=== PATIENT | female | born 1990 | race Caucasian/White ===

== ENCOUNTER → 2019-06-01 16:10 | Outpatient (CLI) | payer OTHER, SELFPAY ==
--- NOTE | 2019-06-01 16:15 | DI.US.S_ITS ---
PROCEDURE: US OB <= 14 WEEKS FETUS INDICATIONS: INITIAL US: DATING AND VIABILITY OUTSIDE/PRIOR DATING DATA: Last menstrual period (LMP): 04/03/19. LMP-based estimated date of delivery (MARTÍN): 01/08/20. First dating scan (date and location): 06/01/19. Estimated date of delivery (MARTÍN) from first dating scan: 01/09/20. TECHNIQUE: Real-time scanning was performed of the fetus and maternal pelvic organs, with image documentation. Endovaginal scanning was also performed to better visualize the fetus and maternal ovaries. COMPARISON: None. FINDINGS: Embryo: Licking-rump length measured 1.8 cm corresponding to 8 weeks 2 days. Embryonic heart rate measured 160 beats per minute. Measurement variability in dating: +/- 4 weeks by LMP, +/- 7 days by mean sac diameter (use before 6 weeks gestation if crown-rump length not able to be measured), +/- 5 days by crown-rump length (up to 8 weeks 6 days gestation), +/- 7 days by crown-rump length (up to 13 weeks 6 days gestation). Maternal organs: Ovaries within normal limits. Limited images through the kidneys demonstrate no hydronephrosis. IMPRESSION: 8 week 2 day single living IUP. Dictated by: Tomas Randhawa RRA Interpreted: Lesley Bach MD on 06/02/2019 at 8:46 Approved by: Leslye Bach MD, PhD on 06/02/2019 at 10:34
== END ==
PROVIDERS: PCP Obstetrics & Gynecology; Visit Provider Obstetrics & Gynecology
DX: Z34.01 Encounter for supervision of normal first pregnancy, first trimester (principal); Z3A.08 8 weeks gestation of pregnancy
CPT/HCPCS: 76801

== ENCOUNTER → 2019-06-21 13:33 | Outpatient (CLI) | payer OTHER, SELFPAY ==
[2019-06-21 14:02] LABS: Appearance Urine UA CLOUDY; Bilirubin Urine UA NEGATIVE (NEGATIVE); Color Urine UA YELLOW; Glucose Urine UA NEGATIVE (Negative); Ketones Urine UA NEGATIVE (NEGATIVE); Leukocyte Esterase Urine UA NEGATIVE (NEGATIVE); Nitrite Urine UA NEGATIVE (Negative); Occult Blood Urine UA NEGATIVE (Negative); Protein Urine UA NEGATIVE (Negative); Urobilinogen Urine UA 0.2 E.U./dL (0.2)
[2019-06-21 14:18] LABS: Add Manual Diff / Slide Review NO; Basophils Absolute Auto 0 /uL (0-100); Basophils Percent Auto 0.3 % (0-2); Eosinophils Absolute Auto 0 /uL (0-450); Eosinophils Percent Auto 0.3 % (2-4); Hematocrit 38.5 % (36-46); Hemoglobin 13.2 g/dL (12.0-16.0); Lymphocytes Absolute Auto 2100 /uL (1100-4500); Lymphocytes Percent Auto 20.6 % (25-40); Mean Corpuscular HGB Conc 34.4 % (30-36); Mean Corpuscular Hemoglobin 30.2 PG (26-34); Mean Corpuscular Volume 87.8 fL (80-100); Monocytes Absolute Auto 700 /uL (0-900); Monocytes Percent Auto 6.5 % (3-14); Neutrophils Absolute Auto 7400 /uL (1500-7000); Neutrophils Percent Auto 72.3 % (50-75); Platelet Count 263 X10^3/uL (150-400); Red Blood Cell Count 4.38 X10^6/uL (4.0-5.2); Red Cell Distribution Width 12.8 % (11.6-14.8); White Blood Cell Count 10.2 X10^3/uL (4.5-11.0)
[2019-06-21 15:32] LABS: Hepatitis B Surface Antigen NEGATIVE s/c (NEGATIVE); Rubella Antibody IgG 24.7 IU/mL (>15)
[2019-06-21 15:46] LABS: HIV 1 & 2 Ab/Ag 4th Gen Combo NEGATIVE (NEGATIVE); Hep C Virus Ab w/Reflex Quant NEGATIVE s/c (NEGATIVE)
== END ==
PROVIDERS: Visit Provider Obstetrics & Gynecology
DX: Z34.90 Encounter for supervision of normal pregnancy, unspecified, unspecified trimester (principal)
CPT/HCPCS: 36415; 80055; 81003; 86787; 86803; 86850; 86900; 86901; 87086; 87389

== ENCOUNTER → 2019-08-03 16:03 | Outpatient (CLI) | payer OTHER, SELFPAY ==
[2019-08-03 20:02] LABS: Urine N gonorrhoeae NOT DETECTED
[2019-08-03 20:55] LABS: Urine Chlamydia NOT DETECTED
[2019-08-09 09:57] LABS: Calc Gestational Age 17.3; Cigarette Smoker NO; Donated Egg N; Donor Egg Age NOT GIVEN; Inhibin A, Dimeric 94 pg/mL; Maternal Ethnicity White; Maternal Weight 248 lbs; Number of Fetuses 1; Previous Pregnancy Down Syndro N; hCG, MoM 1.07; hCG, Serum 21.8 IU/mL
== END ==
PROVIDERS: Visit Provider Obstetrics & Gynecology
DX: Z34.82 Encounter for supervision of other normal pregnancy, second trimester (principal)
CPT/HCPCS: 36415; 82105; 82677; 84702; 86336; 87491; 87591

== ENCOUNTER → 2019-08-20 08:41 | Outpatient (CLI) | payer OTHER, SELFPAY ==
--- NOTE | 2019-08-20 08:45 | DI.US.S_ITS ---
PROCEDURE: US OB >= 14 WEEKS FETUS INDICATIONS: ANATOMY OUTSIDE/PRIOR DATING DATA: Last menstrual period (LMP): 04/03/19. LMP-based estimated date of delivery (MARTÍN): 01/08/20. First dating scan (date and location): 06/01/19. Estimated date of delivery (MARTÍN) from first dating scan: 01/09/20. TECHNIQUE: Real-time scanning was performed of the fetus, with image documentation and biometric measurements. Endovaginal scanning: No COMPARISON: [facility], , OB <= 14 WEEKS FETUS, 06/23/2019, 17:07. FINDINGS: General: A single living intrauterine gestation is present. Presentation: Breech. Placenta: Placental position is posterior, without previa. Amniotic fluid index: 12.1 cm, normal range is 5-24 cm. heart rate: 143 beats per minute. Maternal cervical canal: 3.8 cm long. Normal lower limit is 2.5 cm. biometrics: Biparietal diameter: 19 weeks 4 days Head circumference: 19 weeks 4 days Abdominal circumference: 19 weeks 4 days Femur length: 19 weeks 5 days Estimated gestational age from initial scan: 19 weeks 5 days Composite gestational age from present scan: 19 weeks 4 days Estimated weight and percentile: 305 g; 42nd percentile Measurement variability for biometric dating: +/- 7 days from 14 weeks to 15 weeks 6 days gestation, +/- 10 days from 16 weeks to 21 weeks 6 days gestation, +/- 2 weeks from 22 weeks to 27 weeks 6 days gestation, +/- 3 weeks for 28 weeks gestation or later. weight reference: 4500 g or EFW >90/95% is considered macrosomia or large for gestational age. EFW <10% is small for gestational age. EFW 5% or less is considered intra-uterine growth restriction. Anatomic survey: Neuro: Ventricles are non-dilated at less than 10 mm. Cisterna magna is normal at 3-11 mm. Cerebellum is normal in size and morphology. Nuchal skin fold: Normal at less than 6 mm between 14-21 weeks gestational age. Face: Nose and lips, facial profile are normal. Spine: Sacral spine not well visualized. Heart: 4-chambered heart is present, with normal ventricular outflow tracts. Diaphragm: Diaphragm is intact. Stomach: Left-sided stomach is present. Kidneys: No hydronephrosis. Normal is less than 5 mm in 2nd trimester, less than 7 mm in 3rd trimester. Cord: 3-vessel cord has orthotopic insertion. Bladder: Normal in size. Extremities: All 4 extremities identified. IMPRESSION: 1. Single living IUP redemonstrated and interval growth is normal. 2. Sacral spine not well-seen; otherwise normal anatomy. Followup recommended. Dictated by: Tomas JEWELL Interpreted: April Pappas MD on 08/20/2019 at 10:42 Approved by: April Pappas M.D. on 08/20/2019 at 13:53
== END ==
PROVIDERS: PCP Obstetrics & Gynecology; Visit Provider Obstetrics & Gynecology
DX: Z34.02 Encounter for supervision of normal first pregnancy, second trimester (principal); Z3A.19 19 weeks gestation of pregnancy
CPT/HCPCS: 76811

== ENCOUNTER → 2019-10-12 13:45 | Outpatient (CLI) | payer OTHER, SELFPAY ==
[2019-10-12 15:18] LABS: Hematocrit 34.5 % (36-46); Hemoglobin 12.1 g/dL (12.0-16.0)
[2019-10-12 15:53] LABS: GTT (PREG) 1 Hour PP 50gm Dose 98 mg/dL (76-139)
== END ==
PROVIDERS: Visit Provider Obstetrics & Gynecology
DX: Z34.02 Encounter for supervision of normal first pregnancy, second trimester (principal); Z3A.23 23 weeks gestation of pregnancy
CPT/HCPCS: 36415; 82950; 85014; 85018

== ENCOUNTER → 2019-12-15 16:12 | Outpatient (CLI) | payer OTHER, SELFPAY ==
[2019-12-16 14:31] LABS: Strep Grp B PCR NEG for Grp B Strep
== END ==
PROVIDERS: Visit Provider Obstetrics & Gynecology
DX: Z34.83 Encounter for supervision of other normal pregnancy, third trimester (principal)
CPT/HCPCS: 87653

== ENCOUNTER 2020-01-17 06:00 | Inpatient (IN) | payer OTHER, SELFPAY ==
--- NOTE | 2020-01-17 08:52 | PM.OBHP.1 ---
OB HPI Date/Time Date of admission: 01/17/20 Date Patient Seen: 01/17/20 Time Patient Seen: 08:52 History of Present Condition Chief complaint: Observation : 2 Para: 0 Estimated Date of Delivery: 01/09/20 Estimated Gestational Age (weeks): 41 Narrative: Abimbola Maciel is a 29 year old 010 at 41 weeks 1 day presenting in early labor. The patient reports that she has scattered contractions on and off all weekend, that these worsened again in the early hours, leading her to present. The patient denies loss of fluid or vaginal bleeding, reports good movement, denies any other complaints obstetrical or otherwise. The patient's has been otherwise obstetrically uncomplicated, and she has a history of an early SAB, expectantly managed. 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 Indications Other reason(s) for admission: Labor History of Present care: good care, initiated at week # (11), number of visits (15) and pounds weight gain (19) Dating criteria: LMP confirmed by 1st trimester US Obstetrical complications: none Medical complications: none Preadmission Labs Blood type: O (+) positive -: Antibody screen: negative, GBS status: negative, HBsAG: negative, HIV: negative and RPR/VDLR: negative -: Chlamydia screen: not detected and Gonorrhea screen: not detected -: Rubella: immune and Varicella: not immune Quad screen: Normal 1 hr GTT: 98 Prior (ies) History: 01/12: early SAB, expt management Evaluation Evaluation Baseline heart rate: 125 Variability: Average (6-10) monitor accelerations: Present monitor decelerations: Absent Uterine Contraction Intensity: Mild Category of Tracing: I Cervical dilation (cm): 4 Cervical effacement (%): 80 station: -2 Laboratory results: pending [facility] Social History Smoking Status: Never smoker Meds Home Medications and Allergies Home Medications Medication Instructions Recorded Confirmed Type Double Electric breast Pump and #1 each 12/08/19 01/17/20 Rx Supplies ferrous sulfate 1 tab PO 01/06/20 01/10/20 History prenat.vits,gregoria,[id number] 1 tab PO DAILY 01/06/20 01/17/20 History Allergies Allergy/AdvReac Type Severity Reaction Status Date / Time No Known Drug Allergies Allergy Verified 01/10/20 11:45 Review of Systems Constitutional Constitutional: Reports system reviewed and no additional complaints, except as documented Cardiovascular Cardiovascular: Reports system reviewed; no additional complaints, except as documented Respiratory Respiratory: Reports system reviewed and no additional complaints, except as documented Gastrointestinal Gastrointestinal: Reports system reviewed and no additional complaints, except as documented Genitourinary Genitourinary: Reports system reviewed and no additional complaints, except as documented Neurologic Neurologic: Reports system reviewed and no additional complaints, except as documented Endocrine Endocrine: Reports system reviewed and no additional complaints, except as documented Exam Vital Signs (past 8 hours): 119/65, HR 65, T 36.3C Const General: cooperative, healthy appearing, comfortable and well developed Resp Effort & Inspection: normal respiratory effort Auscultation: clear to auscultation bilaterally Cardio Rate: regular rate Rhythm: regular rhythm GI Palpation: soft and No tender External Female Exam: external appearance normal Presentation: vertex Estimated Weight (lbs): 8 Objective Labs Result Diagrams: 01/17/20 11:15 Assessment and Plan Assessment and Plan Assessment and Plan narrative: This patient presents in early labor at 41+1, having mdae cervical change to 4cm and with reassuring testing. The patient will be admitted per the usual protocol, encouraged to ambulate while labs and IV pending. Plan for pitocin augmentation if patient does not enter active labor this AM. - CBC, T&S - cEFM, toco
[2020-01-17] MEDS: LACTATED RINGERS 1,000 ML 100 ML IV (11:15)
[2020-01-17 11:35] LABS: Add Manual Diff / Slide Review NO; Basophils Absolute Auto 100 /uL (0-100); Basophils Percent Auto 0.4 % (0-2); Eosinophils Absolute Auto 0 /uL (0-450); Eosinophils Percent Auto 0.1 % (2-4); Hematocrit 37.3 % (36-46); Hemoglobin 12.6 g/dL (12.0-16.0); Lymphocytes Absolute Auto 1800 /uL (1100-4500); Lymphocytes Percent Auto 12.4 % (25-40); Mean Corpuscular HGB Conc 33.9 % (30-36); Mean Corpuscular Hemoglobin 30.6 PG (26-34); Mean Corpuscular Volume 90.2 fL (80-100); Monocytes Absolute Auto 700 /uL (0-900); Neutrophils Absolute Auto 12200 /uL (1500-7000); Neutrophils Percent Auto 82.1 % (50-75); Platelet Count 255 X10^3/uL (150-400); Red Blood Cell Count 4.14 X10^6/uL (4.0-5.2); Red Cell Distribution Width 13.3 % (11.6-14.8); White Blood Cell Count 14.8 X10^3/uL (4.5-11.0)
--- NOTE | 2020-01-17 12:45 | PM.OBPNLAB ---
Date/Time Date Patient Seen: 01/17/20 Time Patient Seen: 12:45 Pain Control Pain control: tolerating well Pelvic Exam Dilation (cm): 5 Effacement (%): 100 station: -2 Contractions Contraction intensity: Mild Status status: Category l Heart Rate Baseline: 125 Monitor Accelerations: Present Monitor Decelerations: Absent Monitor Variability: Moderate Assessment and Plan Assessment: other Plan: begin patient augmentation Comments: Patient making slow change, for pitocin augmentation. Encouraged to ambulate, for epidural when desired.
[2020-01-17] MEDS: OXYTOCIN PREMIX 30 UNIT/500 ML PLAST..BAG IV (12:48)
[2020-01-17 13:25] VITALS: BP 119/65
[2020-01-17] MEDS: ONDANSETRON 4 MG/2 ML INJ IV (15:24)
--- NOTE | 2020-01-17 15:43 | PM.OBPNLAB ---
Date/Time Date Patient Seen: 01/17/20 Time Patient Seen: 15:43 Pain Control Pain control: epidural Pelvic Exam Dilation (cm): 6 Effacement (%): 100 station: -1 Amniotic membrane status: Ruptured (light mec) Contractions Pitocin rate (mU/min): 4 Contraction frequency (min): 3 Contraction intensity: Mild Status status: Category ll Monitor Accelerations: Present Monitor Decelerations: Episodic Monitor Variability: Moderate Assessment and Plan Plan: continuous present management Comments: patient having late decelerations, asymptomatically hypotensive after epidural. For IV fluid bolus, conservative measures, pitocin when permitted per protocol.
--- NOTE | 2020-01-17 20:08 | P.PCNOB_ITS ---
Labor & Delivery Delivery date: 01/17/20 Intrapartal events: Acceleration and Deceleration Induction method: per pitocin protocol Delivery augmentation: rupture of membranes Delivery monitor: external FHT and external uterine Route of delivery: L&D Laceration Description: Perineal - 2nd Degree Delivery repair: vicryl Estimated blood loss (mL): 150 Anesthesia type: Epidural Narrative: This patient presented in early labor on the morning of her previously planned induction for postdates, and had progressed to 4cm dilated without augmentation. After a prolonged latent phase, she was augmented with pitocin and later with AROM for light mec. She progressed to fully dilated with the active phase characterized by intermittent late and prolonged decelerations, though with reassuring variability, accelerations, and scalp stim. She pushed for 2.5 hours with transition of the vertex from direct OP to YASSINE presentation, and was delivered of a healthy baby girl, weight 7#14, apgars 8+9. The shoulders delivered with ease, and there was no nuchal cord. The delivery was characterized by copious terminal meconium. The placenta delivered spontaneously. A small 2nd degree perineal laceration was repaired with 3-0 vicryl in the usual fashion. There were no other intrapartum or immediate p ostpartum complications. [place] Baby 1: Infant gender: Female Presentation: vertex position: Right Occiput Anterior cord vessel description: 3 Vessels score (1 min): 8 score (5 min): 9 Plan for aftercare: Routine care. 30mU pitocin administered.
[2020-01-18] MEDS: IBUPROFEN 600 MG TABLET PO ×4 (05:59→18:52)
--- NOTE | 2020-01-18 07:54 | PM.OBPN.1 ---
Subjective - OB Subjective Patient comments: no complaints, pain well controlled, tolerating diet and flatus present baby status: doing well and nursing well Bastian feeding status: exclusively breast feeding Narrative: This patient is a 29yo P1 PPD#1 s/p after augmentation with pitocin, having presented in early labor in the setting of postdates. She reports feeling well this AM, with mild cramping controlled with motrin, mild to moderate lochia, voiding and passing flatus, ambulating, and tolerating PO without issue. The patient and her spouse are considering discharge this afternoon. Date Patient Seen: 01/18/20 Time Patient Seen: 07:54 Exam Vital Signs (past 8 hours): 124/75, HR 85, T 97.6F Const General: cooperative, healthy appearing and comfortable Resp Effort & Inspection: normal respiratory effort Auscultation: clear to auscultation bilaterally Cardio Rate: regular rate Rhythm: regular rhythm GI Palpation: soft and No tender Objective Labs Result Diagrams: 01/17/20 11:15 Labs: Laboratory Results - last 24 hr 01/17/20 01/17/20 11:15 11:15 WBC 14.8 H RBC 4.14 Hgb 12.6 Hct 37.3 MCV 90.2 MCH 30.6 MCHC 33.9 RDW 13.3 Plt Count 255 Neut % (Auto) 82.1 H Lymph % (Auto) 12.4 L Bullock % (Auto) 5.0 Eos % (Auto) 0.1 L Baso % (Auto) 0.4 Neut # (Auto) 13357 H Lymph # (Auto) 1800 Bullock # (Auto) 700 Eos # (Auto) 0 Baso # (Auto) 100 Blood Type O Positive Antibody Screen Negative Assessment & Plan Plan day: 1 plan OB: routine care Comments: This patient is PPD#1 s/p uncomplicated vaginal delivery, recovering well with no complaints. The patient is struggling to breastfeed and baby will be discharged tomorrow, and the patient's discharge is planned for tomorrow AM. Routine care today. Time Spent With Patient Time: Total time spent is greater than 50% in coordination of care (as documented) at patient's floor/unit and/or counseling patient: Time with patient: 15-24 minutes
[2020-01-18] MEDS: LANOLIN OINT 7 GM 1 APPLIC TOP (20:23)
[2020-01-18] MEDS: ACETAMINOPHEN 325 MG TABLET 650 MG PO (20:24)
[2020-01-19] MEDS: IBUPROFEN 600 MG TABLET PO (04:21)
--- NOTE | 2020-01-19 07:59 | P.DS_ITS ---
Discharge Providers Provider Date of admission: 01/17/20 06:00 Discharge Date: 01/19/20 Primary care physician: KURT Oglesby Consults: 01/18/20 20:03 Consult to [facility] Routine Comment: Discharge provider: Lo Snowden MD Summary Hospital Course Date Patient Seen: 01/19/20 Time Patient Seen: 08:00 Hospital Course: This patient presented in early labor on the postdates period, and was augmented with Pitocin and AROM. She progressed to fully dilated, was delivered of a he althy baby girl, weight 7 lb 14 oz. Small second-degree perineal laceration was repaired in the usual fashion. There were no intrapartum or complications, the patient was discharged on day 2. Peripartum Data Laceration description: Perineal - 2nd Degree complications: none [place] 1: Gender: Female Disposition of : home Discharge Diagnosis (1) Vaginal delivery: Status: Acute Status at Discharge Cognitive/behavioral status at discharge: oriented Functional status at discharge: independent ambulation Overall status at discharge: patient is progressing back to baseline Time Spent with Patient Time attestation: Total time spent providing and/or coordinating discharge services: Time spent: Less than 30 minutes Specific discharge activities: Nothing in the vagina for 6 weeks. Avoid heavy lifting for 6 weeks. precautions discussed. Objective Labs Result Diagrams: 01/17/20 11:15 Exam Vital Signs (past 8 hours): See day of discharge progress note. Discharge Plan Discharge Plan Patient Disposition: Home Discharge orders & Medications Prescriptions: Continued (DME) Double Electric breast Pump and Supplies See Rx Instructions .ROUTE .MEDSUPPLY Qty: 1 RF: 0 prenat.vits,gregoria,[id number] Tablet 1 tab PO DAILY RF: 0 Follow up/Referrals: Lo Snowden MD [Physician] - 1 Month Alyssa Christianson ARNP [Primary Care Provider] - Diet/Activity/Treatments Diet: Regular Activity: Nothing in the vagina for 6 weeks. Avoid heavy lifting for 6 weeks. If you have increasing bleeding, fevers, chills, headaches, visual changes, or any other concerning symptoms, call the clinic or come to the emergency room. Visit Report/Discharge Packet Instructions: DI for Labor and Delivery, Vaginal Discharge Data Primary Care Provider: Alyssa Christianson
--- NOTE | 2020-01-19 07:59 | PM.OBPN.1 ---
Subjective - OB Subjective Patient comments: no complaints and pain well controlled baby status: doing well feeding status: pumping and bottle feeding Narrative: Patient reports feeling well this morning, ambulating, voiding, tolerating p.o., mild to moderate lochia, passing flatus. No other complaints obstetrical or otherwise. Date Patient Seen: 01/19/20 Time Patient Seen: 07:45 Exam Vital Signs (past 8 hours): 121/75, heart rate 70, temperature 98.7?. Const General: cooperative, healthy appearing and comfortable Resp Effort & Inspection: normal respiratory effort Auscultation: clear to auscultation bilaterally Cardio Rate: regular rate Rhythm: regular rhythm GI Palpation: soft and No tender Skin General: no rashes or lesions noted Objective Labs Result Diagrams: 01/17/20 11:15 Assessment & Plan Plan day: 2 plan OB: routine care Comments: This patient is doing well , meeting goals and stable for discharge home. precautions were discussed, patient will return in 4-6 weeks for follow-up. Time Spent With Patient Time: Total time spent is greater than 50% in coordination of care (as documented) at patient's floor/unit and/or counseling patient: Time with patient: 15-24 minutes
[2020-01-19 09:11] VITALS: BP 121/75; PULSE 70; RESP 16; TEMP 37.1
[2020-01-19 09:15] VITALS: BP 121/75; PULSE 70; RESP 16; TEMP 37.1
== END 2020-01-19 12:52 | disposition home or self-care (01) | DRG 807 ==
PROVIDERS: Admitting Provider Obstetrics & Gynecology; PCP Nurse Practitioner Family; Referring Provider Obstetrics & Gynecology; Visit Provider Obstetrics & Gynecology
DX: O48.0 Post-term pregnancy (principal); Z37.0 Single live birth; Z3A.41 41 weeks gestation of pregnancy; O77.0 Labor and delivery complicated by meconium in amniotic fluid; O70.1 Second degree perineal laceration during delivery
CPT/HCPCS: 01967; 59050; 59400; 59409; 76815; 85025; 86850; 86900; 86901; G0379; J2405; J2590